=== PATIENT | female | born 1960 ===

== ENCOUNTER 2016-11-26 05:38 | Day surgery (SDC) | payer MEDICARE, MEDICAID ==
[~2016-11-26] VITALS: Ht 161.3 cm; Wt 105.2 kg
[2016-11-26] VITALS (8 sets, daily range): BP systolic 97–129; BP diastolic 40–89; PULSE 67–80; RESP 9–18; O2SAT 95–99
[~2016-11-26 05:38] MED LIST: ALBU2.5V4 INHALATION; ALBU8.5H2 INHALATION; ARIP5TAB5 PO; CETI10CA PO; CHOL10008 PO; CeFAZolin Inj 2 GM in IV Premix 1 EACH IV ONE; ESTR1TAB5 PO; GABA600T PO; NORT10CA PO; TRAM50TA2 PO; VENL75TA3 PO
[2016-11-26] MEDS ORDERED: Propofol 10,000 mCg/mL 20 mL Inj ONE (05:39)
[2016-11-26] MEDS ORDERED: fentaNYL-PF 50 mCg/mL 2 mL Inj ONE (05:39)
[2016-11-26] MEDS ORDERED: Lidocaine PF 1% 30 mL Inj ONE (05:39)
[2016-11-26] MEDS ORDERED: Dexamethasone 4 mg/mL Inj ONE (05:39)
[2016-11-26] MEDS ORDERED: Ondansetron 2 mg/mL 2 mL Inj ONE (05:39)
[2016-11-26] MEDS ORDERED: Lactated Ringer's 1,000 ML IV ONE ×2 (05:45→07:19)
[2016-11-26] MEDS ORDERED: CeFAZolin Inj 2 gm / 50mL D5W IV ONE (05:57)
[2016-11-26] MEDS ORDERED: Lactated Ringer's 500 ML IV PRN (07:19)
[2016-11-26] MEDS ORDERED: Lactated Ringer's 1,000 ML IV SCH (07:19)
--- NOTE | 2016-11-26 07:19 | PCM.HPANE ---
Patient Data Date of Service: Nov 26, 2016 Surgeon Admitting Provider: Attending Provider:Kali Victoria DPM Primary Care Physician:Tony Andre MD Other Provider:Shobha Miner Anesthesia Reason for Visit Flail Toes, Digits 2, 3, 4 & 5 Right Ht/WT & BMI Height (Feet): 5 Height (Inches): 3.50 Weight (Kilograms): 105.2 Body Mass Index 40.00 Allergies Coded Allergies: quetiapine (Verified Adverse Reaction, Severe, asthma sx, 11/24/16) risperidone (Verified Adverse Reaction, Severe, ASTHMA SX, 11/24/16) trazodone (Verified Adverse Reaction, Severe, ASTHMA SX, 11/24/16) Past Anesthesia History Anesthesia History: Denies:: Anesthesia Reactions, Fam Malignant Hypertherm, Malignant Hyperthermia Diabetes History Hx Diabetes?: No MRSA MRSA: No Medications Home Meds Incl Beta Vanessa: No Reported Medications Albuterol HFA (Proair HFA)8.5 Gm Hfa.aer.ad2 Puffs INHALATION Q4H PRN PRN #1 INHALER 11/24/16 Tramadol 50 Mg Waslrp53 Mg PO Q6H PRN For Pain Ref 0 11/24/16 Aripiprazole (Abilify)5 Mg Tablet5 Mg PO DAILY Ref 0 11/24/16 Cholecalciferol (Vitamin D3) (Vitamin D3)1,000 Unit Tab.chew2,000 Unit PO DAILY 05/30/16 Cetirizine HCl (Zyrtec)10 Mg Hwygiyw10 Mg PO HS #30 CAPSULE Ref 0 10/28/15 Venlafaxine 75 Mg Zmtxxd59 Mg PO BIDWM Ref 0 10/28/15 Gabapentin (Neurontin)600 Mg Dipeie286 Mg PO TID 30 Days Ref 0 10/28/15 Discontinued Reported Medications Albuterol Neb Soln 2.5 Mg/3 Ml Vial.neb2.5 Mg INHALATION Q4H PRN For Shortness of Breath Ref 0 11/24/16 Estrogens Conj/Medroxyprog 0.625-2.5 mg (Prempro 0.625-2.5 mg)1 Each Tablet1 Tablet PO 4X/WEEK #1 PACK 11/24/16 Nortriptyline 10 Mg Xgdfqts40 Mg PO HS 11/24/16 Amitriptyline 25 Mg Dai40-78 Mg PO HS Ref 0 05/30/16 Aripiprazole 5 Mg Tablet5 Mg PO HS 05/30/16 oxyCODONE-Acetaminophen 7.5-325 mg 1 Each Tablet1 Tab PO Q6H PRN For Pain Ref 0 10/28/15 History History of ENT Problems?: Yes HEENT History: Positive for:: Hearing Problem Sinus Problem Hx of Heart Problems?: Yes Cardiovascular History: Positive for:: Chest Pain (05/2016-R/T BRONCHITIS/ PNEUMONIA (DEEMED NON-CARDIAC)) Denies:: Congestive Heart Failure Hypertension Hx of Respiratory Problem?: Yes Respiratory History: Positive for:: Asthma Pneumonia (HX RECENT BRONCHITIS) Use of Inhalers / NEBS Denies:: Tuberculosis Use of C-PAP Machine Hx Neurologic Problems?: Yes Neurological History: Positive for:: CVA (2003,2011) Headaches Seizures (per EMR hx of seizure disorders-) Hx of GI Problems?: Yes Gastrointestinal History: Positive for:: Hepatitis (Hep C+) Rectal Bleeding (S/P HEMORRHOIDECTOMY, C/OF FECAL "LEAKAGE") Hx of Problems?: No Female Hx: Denies:: Currently Skin History: Denies:: History Skin Disorders? Pressure Ulcers Hx Musculoskeletal Problems?: Yes Musculoskeletal History: Positive for:: Back Injury (C/OF BACK PAIN) Degenerative Joint Fibromyalgia Musculoskeletal Trauma (S/P BILAT BUNIONECTOMY,RT HAMMERTOES RPR,ROTATOR CUFF RPR) Osteoarthritis Hx of Psycho/Social Problems?: Yes Psycho Social History: Positive for:: Bipolar Disorder Hx Surgeries?: Yes ( EYE PROCEDURE,HEMORRHOIDS,B/L BUNIONS,SPINE SURG.,ROTATOR CUFF RPR,HAMMERT) Hx Any Other Health Problems?: Yes Other History: Denies:: Cancer Endocrine Disease Hospitalization Thyroid Disease History Blood Transfusions: Denies:: Blood Transfusions Hx Diabetes: No Hx Alcohol Use: Yes (SOBER 2015)Hx Substance Use: No (per EMR past hx meth use ) Smoking Status: Current Every Day Smoker Have You Smoked inLast 12 mo: Yes Stop/Bang S-Snoring: Do You Snore Loudly: Yes T-Tired: feel tired, fatigued: Yes O-Obsered: Observed not breath: No P-Blood Pressure: treated: No B- Body Mass Index > 35 kg/m2: Yes A- Age over 50: Yes N- Neck Large Circumference: Yes G- Gender Male: No ABUNDIO Total Score: 5 ABUNDIO Risk Assessment: High Risk, =/>3 Yes Risk Assessment Category Category 1A: Patient has history of documented sleep apnea, and HAS NOT received any narcotic, sedative or anesthesia administration during this stay. Category 1B: Patient has history of documented sleep apnea, and HAS received any narcotic , sedative or anesthesia administration during this stay Category 2: Patient has SUSPECTED Obstructive Sleep Apnea, and HAS received any narcotic , sedative or anesthesia administration during this stay. Category 3: Patient has SUSPECTED Obstructive Sleep Apnea and HAS NOT received narcotic, sedative or anesthesia administration during this stay. Category 4: Outpatient in Procedural Areas with known sleep apnea or who screen positive for High Risk via the STOP/BANG questionnaire. Exam Exam Vital Signs Vital Signs Date Time Temp Pulse Resp B/P Pulse Ox O2 Delivery O2 Flow Rate FiO2 11/26/16 06:05 36.1 77 18 104/67 95 Room Air General Appearance: Alert, Oriented X3, Cooperative HEENT/AIRWAY: MP 2 Lungs: Normal Air Movement Heart: Exam Unremarkable Meds/Labs/Diagnostics Admission Meds Current Medications Lactated Ringer's (Lr) 1,000 ml @ ud STK-MED ONCE IV Last administered on t 05:45; Start 11/26/16 at 05:45; Stop 11/26/16 at 05:46; Status DC Plan Impression Patient chart reviewed, patient interviewed and anesthestic plan with risks, benefits, and alternatives discussed, and informed consent obtained. NPO Status: 10;pm ASA Physical Status: ASA3 Severe Disease (copd, obesity) Anesthetic Plan: GA Bene/Risks/Altern/Consents: Yes HP Complete Prior to Induction: Yes Lev Rao MD Nov 26, 2016 07:02
[2016-11-26] MEDS ORDERED: EPHEDrine Sulfate 50 mg/mL Inj IVPUSH PRN (07:20)
[2016-11-26] MEDS ORDERED: MetoCLOpramide 5 mg/mL 2 mL Inj IVPUSH PRN (07:20)
[2016-11-26] MEDS ORDERED: HYDROmorphone 1 mg/mL Inj IVPUSH PRN (07:20)
[2016-11-26] MEDS ORDERED: fentaNYL-PF 50 mCg/mL 2 mL Inj IVPUSH PRN (07:20)
[2016-11-26] MEDS ORDERED: Albuterol-Ipratropium 3 mL Inhalation Solution NEB PRN (07:20)
[2016-11-26] MEDS ORDERED: Labetalol 5 mg/mL 4 mL Inj IV PRN (07:20)
[2016-11-26] MEDS ORDERED: Dexamethasone 4 mg/mL Inj IVPUSH PRN (07:20)
[2016-11-26] MEDS ORDERED: Atropine 0.4 mg/mL Inj IVPUSH PRN (07:20)
[2016-11-26] MEDS ORDERED: Ondansetron 2 mg/mL 2 mL Inj IVPUSH PRN (07:20)
[2016-11-26] MEDS ORDERED: Phenylephrine 10,000 mCg/mL Inj IVPUSH PRN (07:20)
[2016-11-26] MEDS ORDERED: Bupivacaine-MPF 0.5% 30 mL Inj INFILTRATE ONE (08:09)
[2016-11-26] MEDS ORDERED: Bacitracin Ointment Packet TOPICAL ONE (09:26)
[2016-11-26] MEDS ORDERED: oxyCODONE-Acetamin 5-325 mg Tablet PO PRN (09:35)
--- NOTE | 2016-11-26 09:42 | PCM.ANEP2 ---
Post Anesthesia Evaluation ASA/CMS Post Anesthesia Date of Service: Nov 26, 2016 VS in Patient's Normal Range?: Yes Resp Stable; Airway Patent?: Yes CV Function & Hydration Stable: Yes Mental Status Recovered?: Yes Pain control Satisfactory?: Yes N/V Control Satisfactory?: Yes Lev Rao MD Nov 26, 2016 09:42
--- NOTE | 2016-11-26 09:42 | PCM.ANEP1 ---
Post Anesthesia Phase 1 PACU Phase 1 Assessment Date of Service: Nov 26, 2016 Vital Signs Vital Signs Date Time Temp Pulse Resp B/P Pulse Ox O2 Delivery O2 Flow Rate FiO2 11/26/16 09:41 69 11 103/68 95 Room Air 11/26/16 09:35 67 9 109/78 99 Room Air 11/26/16 09:31 36.3 69 9 97/40 99 Room Air 11/26/16 06:05 36.1 77 18 104/67 95 Room Air Anesthetic Administered: GA Level of Alertness: Awake, talking TELLEZ's with Equal Strength: Yes Pain: No Nausea or Vomiting: No Oxygen Delivery: Nasal Cannula Lungs: Normal Air Movement Lev Rao MD Nov 26, 2016 09:42
--- NOTE | 2016-11-26 09:47 | PCM.PODPO ---
Podiatry Operative Report Date of Service: Nov 26, 2016 Date of Service Nov 26, 2016 Pre Operative Diagnosis Flail second and third DIPJ, rigid hammertoe fourth and fifth digit all right foot Post Operative Diagnosis Same Procedure #1 arthrodesis of DIPJ second and third toes using screw fixation and autogenous bone graft from the fourth and fifth digits right foot #2 arthroplasty fourth and fifth digits right foot Surgeon Surgeon: Kali Victoria DPM Assistants: None Indication for Procedure Chronic pain toes 2 through 5 right foot Findings Same Details of Procedure Patient was placed on the table in the supine position and surgical timeout observed. Well-padded pneumatic ankle tourniquet was applied, the digits were anesthetized utilizing proximally 6 cc 0.5% Marcaine via a digital block and the right foot prepped and draped in the usual aseptic manner. The tourniquet was inflated to 250 mmHg and attention directed to the fourth toe where converging elliptical incision was made overlying the PIPJ. A 4 mm ellipse of skin was excised and a dorsal tenotomy and capsulotomy performed exposing the head of the proximal phalanx which was resected and saved for use as an autogenous graft. Attention was then directed to the fifth digit where an obliquely oriented converging elliptical incisions were made on the dorsal lateral aspect of the toe oriented from distal medial to proximal lateral so as to derotate the digit upon closure. A tenotomy and capsulotomy was performed at the PIPJ level and he had of the proximal phalanx was resected with a slight bevel to prevent lateral prominence. Sites were copiously irrigated with antibiotic solution, the extensor tendons were repaired with 4-0 Vicryl and skin with 4-0 Prolene. Attention was then directed to the third digit. Transversely oriented converging semi-elliptical incision made overlying the DIPJ and the ellipse excised. Dorsal tenotomy and capsulotomy performed. The joint space was noted to be somewhat fibrous and this tissue was excised with a blade and rongeur forcep. The articular surface of the proximal phalanx which was degenerated was conservatively resected to the level of cancellus bone and utilizing a rongeur forcep the base of the distal phalanx was freed of fibrous tissue and residual cartilage. The head of the fifth digit was remodeled so as to remove any residual periosteum or articular cartilage. The graft was inserted into the DIPJ joint space and fixated utilizing an axial 2.0 cortical screw via lag technique with just it passed through the small graft. The digit was noted to be in rectus alignment with good compression of the graft. The site was copiously irrigated the extensor tendon was repaired with 4-0 Vicryl and skin with 4-0 Prolene. This procedure was then performed at the second digit with similar intraoperative results utilizing autogenous graft from the fourth toe. The tourniquet was released normal perfusion returned to all digits. An additional 4 cc 0.5% Marcaine was utilized and an antibiotic ointment Adaptic dressing was applied to all digits. The patient tolerated the procedure well and left the operating suite in apparently satisfactory condition with vascular status to all digits intact and within normal limits there were no complications Grafts, Implants: Implants-See Implant Record Complications There were no periprocedural complications identified. Condition Stable Anesthetic Administered: GA Drains: None Catheters: None Output, Estimated Blood Loss: 5 Blood Admin during surgery: No Surgical Cast or Splint: Other Surgical Specimen Removed: No Specimen sent to Pathology: No Post Operative Plan Postoperative instructions have been reviewed and pain medication prescribed patient will return to the outpatient clinic in 5 days. Kali Victoria DPM Nov 26, 2016 09:47
== END 2016-11-26 23:59 | disposition home or self-care (01) ==
LOC: SAS 05:38
PROVIDERS: ATTEND Podiatrist
DX: M25.28 Flail joint, other site (principal); J45.909 Unspecified asthma, uncomplicated; R51 Headache; F17.210 Nicotine dependence, cigarettes, uncomplicated; Z79.899 Other long term (current) drug therapy
CPT/HCPCS: 28285; C1713; J0690; J1100; J2250; J2405; J3010; J7120